=== PATIENT | male | born 1980 | race Hispanic/Latino ===

== ENCOUNTER 2020-02-09 13:52 | Emergency (ER) | payer SELFPAY ==
[2020-02-09] MEDS ORDERED: Fluorescein Opthalmic Strip ONE (14:20)
[2020-02-09] MEDS ORDERED: Proparacaine 0.5% Opth 15 ML BOT ONE (14:22)
== END 2020-02-09 14:58 | disposition home or self-care (01) ==
LOC: ERS 13:52
DX: H16.001 Unspecified corneal ulcer, right eye (principal); H54.61 Unqualified visual loss, right eye, normal vision left eye; F17.210 Nicotine dependence, cigarettes, uncomplicated
CPT/HCPCS: 99283

== ENCOUNTER 2020-10-27 20:00 | Emergency (ER) | payer SELFPAY ==
[2020-10-27] MEDS ORDERED: Lidocaine 1% (PF) 30 ML VIAL ONE (20:43)
[2020-10-27] MEDS ORDERED: Bacitracin 1 PK ONE (21:45)
== END 2020-10-27 22:00 | disposition home or self-care (01) ==
LOC: ERS 20:00
DX: S62.636B Displaced fracture of distal phalanx of right little finger, initial encounter for open fracture (principal); F17.210 Nicotine dependence, cigarettes, uncomplicated; W25.XXXA Contact with sharp glass, initial encounter
CPT/HCPCS: 12001; J2001

== ENCOUNTER 2020-11-18 18:51 | Emergency (ER) | payer SELFPAY ==
[2020-11-18 20:56] LABS: #Eosinphils 0.1 thou/uL (0.0-0.7); #Lymphocytes 1.5 thou/uL (1.20-3.40); #Monocytes 1.7 thou/uL (0.11-0.59); %Basophils 0.1 % (0.0-1.0); %Eosinophils 0.3 % (0.0-10.0); %Lymphocytes 8.1 % (21.0-51.0); %Monocytes 9.2 % (0.0-10.0); %Neutrophils 82.3 % (42.0-75.0); Hemoglobin 15.5 g/dL (14.0-18.0); Mean Corpuscular Hemoglobin 32.6 pg (27.0-31.0); Mean Corpuscular Volume 95.8 fL (78.0-98.0); Mean Platelet Volume 8.8 fL (7.4-10.4); Platelet Count 288 thou/uL (130-400); RBC Distribution Width 11.9 % (11.5-14.5); Red Blood Cell (RBC) Count 4.75 mill/uL (4.70-6.10); White Blood Cell (WBC) Count 18.2 thou/uL (4.8-10.8)
[2020-11-18] MEDS ORDERED: Dexamethasone 4 MG TAB ONE (21:06)
[2020-11-18] MEDS ORDERED: Dexamethasone 10 MG/ML VIAL ONE (21:07)
[2020-11-18 21:11] LABS: ALT (SGPT) 33 U/L (8-55); AST (SGOT) 28 U/L (5-34); Albumin 3.8 g/dL (3.5-5.0); Alkaline Phosphatase 125 U/L (40-110); Anion Gap 17 mmol/L (10-20); BUN (Urea Nitrogen) 13 mg/dL (8.9-20.6); Bilirubin, Total 0.5 mg/dL (0.2-1.2); Calc. Creatinine Clearance 0 mL/min (70-130); Calcium 9.6 mg/dL (7.8-10.44); Carbon Dioxide 24 mmol/L (22-29); Chloride 99 mmol/L (98-107); Globulin 3.6 g/dL (2.4-3.5); Glucose 113 mg/dL (70-105); Potassium 4.6 mmol/L (3.5-5.1); Protein, Total 7.4 g/dL (6.0-8.3); Sodium 135 mmol/L (136-145)
== END 2020-11-18 21:10 | disposition left against medical advice (07) ==
LOC: ERS 18:51
DX: J36 Peritonsillar abscess (principal); R00.0 Tachycardia, unspecified; F17.210 Nicotine dependence, cigarettes, uncomplicated
CPT/HCPCS: 36415; 80053; 83605; 85025; 87430; 94760; J1100; J8540

== ENCOUNTER 2024-02-10 10:02 | Emergency (ER) | payer SELFPAY ==
[2024-02-10] MEDS ORDERED: Fluorescein Opthalmic Strip ONE ×2 (10:35→12:21)
[2024-02-10] MEDS ORDERED: Proparacaine 0.5% Opth 15 ML BOT ONE (10:35)
== END 2024-02-10 12:57 | disposition home or self-care (01) ==
LOC: ERS 10:02
DX: H10.9 Unspecified conjunctivitis (principal); F17.210 Nicotine dependence, cigarettes, uncomplicated; W22.8XXA Striking against or struck by other objects, initial encounter; Y93.89 Activity, other specified
CPT/HCPCS: 99283

== ENCOUNTER 2024-06-03 14:03 | Emergency (ER) | payer OTHER ==
[2024-06-03 14:32] LABS: Bacteria/HPF None Seen HPF (None Seen); Bilirubin Negative (Negative); Blood, Urine Negative (Negative); CAUTI Indications for Culture Dysuria,urgency,freq; Clarity Clear (Clear); Glucose, Urine (Dipstick) Normal (Negative); Ketone, Urine Negative (Negative); Leukocyte Negative Leu/uL (Negative); Nitrite Negative (Negative); Protein, Urine (Dipstick) Negative (Neg-Trace); RBC/HPF 0-3 HPF (0-3); Specific Gravity, Urine 1.027 (1.002-1.036); Squamous Epithelial None Seen HPF (0-3); Urobilinogen Normal mg/dL (Less than 2); WBC/HPF 0-3 HPF (0-3); pH, Urine 5.5 (5.0-9.0)
[2024-06-03 14:46] LABS: Urine Culture Reflex No No
== END 2024-06-03 16:26 | disposition home or self-care (01) ==
LOC: ERS 14:03
DX: N50.3 Cyst of epididymis (principal); N43.3 Hydrocele, unspecified; F17.210 Nicotine dependence, cigarettes, uncomplicated; F17.220 Nicotine dependence, chewing tobacco, uncomplicated
CPT/HCPCS: 76870; 81001; 93976

== ENCOUNTER 2025-01-15 21:32 | Emergency (ER) | payer OTHER ==
[2025-01-15] MEDS ORDERED: Fluorescein Opthalmic Strip ONE (22:36)
[2025-01-15] MEDS ORDERED: Proparacaine 0.5% Opth 15 ML BOT ONE (22:36)
== END 2025-01-15 22:50 | disposition home or self-care (01) ==
LOC: ERS 21:32
DX: S05.01XA Injury of conjunctiva and corneal abrasion without foreign body, right eye, initial encounter (principal); F17.210 Nicotine dependence, cigarettes, uncomplicated; F17.220 Nicotine dependence, chewing tobacco, uncomplicated; X58.XXXA Exposure to other specified factors, initial encounter
CPT/HCPCS: 99282

== ENCOUNTER 2025-05-10 02:53 | Observation (INO) | payer OTHER ==
[2025-05-10] MEDS ORDERED: Famotidine/PF 20 mg/2ml Vial ONE (04:41)
[2025-05-10] MEDS ORDERED: Droperidol 5 MG/2 ML VIAL ONE (04:41)
[2025-05-10 05:24] LABS: Bacteria/HPF None Seen HPF (None Seen); CAUTI Indications for Culture Pelvic or flank pain; Glucose, Urine (Dipstick) Normal (Negative); Leukocyte Negative Leu/uL (Negative); Protein, Urine (Dipstick) 20 mg/dL (Neg-Trace); RBC/HPF 0-3 HPF (0-3); Specific Gravity, Urine 1.038 (1.002-1.036); WBC/HPF 0-3 HPF (0-3)
[2025-05-10 05:27] LABS: Urine Culture Reflex No No
[2025-05-10 06:51] LABS: #Basophils 0.08 10x3/uL (0.0-0.2); #Eosinophils 0.63 10x3/uL (0.0-0.7); #Monocytes 0.70 10x3/uL (0.11-0.59); #Neutrophils 9.30 10x3/uL (1.40-6.50); %Basophils 0.6 % (0.0-1.0); %Eosinophils 5.0 % (0.0-10.0); %Lymphocytes 14.6 % (21.0-51.0); %Monocytes 5.6 % (0.0-10.0); %Neutrophils 73.9 % (42.0-75.0); Hematocrit 41.0 % (42.0-52.0); Hemoglobin 13.8 g/dL (14.0-18.0); Mean Corpuscular Hemoglobin 30.6 pg (27.0-31.0); Mean Corpuscular Volume 90.9 fL (78.0-98.0); Platelet Count 262 10x3/uL (130-400); Red Blood Cell (RBC) Count 4.51 mill/uL (4.70-6.10); White Blood Cell (WBC) Count 12.59 10x3/uL (4.8-10.8)
[2025-05-10 07:16] LABS: ALT (SGPT) 21 U/L (Less than 45); AST (SGOT) 27 U/L (11-34); Albumin 3.8 g/dL (3.1-4.5); Alkaline Phosphatase 67 U/L (40-110); Anion Gap 17 mmol/L (10-20); BUN (Urea Nitrogen) 13 mg/dL (8.9-20.6); Bilirubin, Total 0.3 mg/dL (0.3-1.2); Calc. Creatinine Clearance 0 mL/min (70-130); Calcium 9.5 mg/dL (7.8-10.44); Carbon Dioxide 20 mmol/L (22-29); Chloride 109 mmol/L (98-107); Globulin 3.2 g/dL (2.4-3.5); Glucose 97 mg/dL (70-105); Lipase 18 U/L (8-78); Potassium 4.5 mmol/L (3.5-5.1); Sodium 141 mmol/L (136-145)
[2025-05-10] MEDS ORDERED: Acetaminophen 325 MG TAB PO PRN (09:24)
[2025-05-10] MEDS ORDERED: hydrALAZINE 20 MG/ML VIAL SLOW IVP PRN (09:24)
[2025-05-10] MEDS ORDERED: Ondansetron PF 4 MG/2 ML Vial ONE (10:26)
[2025-05-10] MEDS ORDERED: Lidocaine 1% PF 5 ML VIAL ONE (10:26)
[2025-05-10] MEDS ORDERED: PROPOFOL 20 ML ONE ×2 (10:26→12:00)
[2025-05-10] MEDS ORDERED: fentaNYL PF 100 MCG/2 ML SYRINGE ONE ×2 (10:26→10:59)
[2025-05-10] MEDS ORDERED: Bupivacaine 0.25% HCL 30 ML VIAL ONE (10:27)
[2025-05-10] MEDS ORDERED: Lidocaine 2% 6 ML (Jelly) SYR ONE (10:28)
[2025-05-10] MEDS ORDERED: PHENYLEPHRINE-NS 100 MCG/ML 10 ML SYRINGE ONE (10:31)
[2025-05-10] MEDS ORDERED: Glycopyrrolate 0.2 MG/ML 5 ML SYRINGE ONE (10:31)
[2025-05-10] MEDS ORDERED: Rocuronium Bromide 10 MG/ML (10ML VIAL) ONE (11:00)
[2025-05-10] MEDS ORDERED: SUGAMMADEX SODIUM 200 MG/2 ML VIAL ONE (11:02)
[2025-05-10] MEDS ORDERED: Ketorolac Tromethamine 30 MG (1 mL) VIAL ONE (11:58)
[2025-05-10] MEDS ORDERED: Iopamidol 370 76% 100 ML VIAL ONE (12:00)
== END 2025-05-10 13:40 ==
LOC: ERS 02:53 → T4-A 09:07
PROVIDERS: ADMIT Surgery; ATTEND Surgery
PROC: 0FT44ZZ Resection of Gallbladder, Percutaneous Endoscopic Approach (ICD-10-PCS; principal; 2025-05-10)
DX: K80.12 Calculus of gallbladder with acute and chronic cholecystitis without obstruction (principal); Z98.890 Other specified postprocedural states
CPT/HCPCS: 74177; 76705; 80053; 81001; 83690; 85025; 88304; 96374; 96375; G0378; J0169; J0665; J1100; J1308; J1790; J1885; J2250; J2405; J2543; J2704; Q9967; S2900